=== PATIENT | male | born 1985 ===

== ENCOUNTER 2019-07-28 22:05 | Emergency (ER) | payer SELFPAY ==
[~2019-07-28] VITALS: Ht 175.3 cm; Wt 78.0 kg
[2019-07-28 22:09] VITALS: BP 127/74
--- NOTE | 2019-07-28 23:26 | NUR ---
[id number]
--- NOTE | 2019-07-28 23:33 | NUR ---
[id number]
--- NOTE | 2019-07-28 23:39 | NUR ---
[id number]
== END 2019-07-28 23:41 | disposition left against medical advice (07) ==
LOC: ED 23:30
DX: R51 Headache (principal); Z53.21 Procedure and treatment not carried out due to patient leaving prior to being seen by health care provider